=== PATIENT | female | born 1960 | race Caucasian/White ===

== ENCOUNTER → 2020-09-20 | Outpatient (CLI) | payer MEDICARE, OTHER | LOC: EXRD 13:30 | DX: R05 Cough (principal); M54.9 Dorsalgia, unspecified; M47.816 Spondylosis without myelopathy or radiculopathy, lumbar region; M51.37 Other intervertebral disc degeneration, lumbosacral region; E04.9 Nontoxic goiter, unspecified | CPT/HCPCS: 71046; 72040; 72070; 72110; 76536 ==

== ENCOUNTER 2021-06-14 12:30 | Emergency (ER) | payer MEDICARE, OTHER | END 2021-06-14 15:30 | disposition home or self-care (01) | LOC: ER1 12:30 | DX: U07.1 COVID-19 (principal); Z23 Encounter for immunization | CPT/HCPCS: 96374; 96375; 99283; J1885; J2405; M0243 ==